=== PATIENT | female | born 1975 | race American Indian/Alaskan Native ===

== ENCOUNTER 2017-09-10 13:25 | Emergency (ER) | payer SELFPAY ==
[2017-09-10 14:22] VITALS: BP 131/82
== END 2017-09-10 15:15 | disposition left against medical advice (07) ==
LOC: ED 13:25
DX: M54.9 Dorsalgia, unspecified (principal); Z53.21 Procedure and treatment not carried out due to patient leaving prior to being seen by health care provider

== ENCOUNTER 2019-05-08 13:39 | Emergency (ER) | payer SELFPAY ==
[2019-05-08 13:54] VITALS: BP 117/73
== END 2019-05-08 14:30 | disposition left against medical advice (07) ==
LOC: ED 13:39
DX: R06.02 Shortness of breath (principal); Z53.21 Procedure and treatment not carried out due to patient leaving prior to being seen by health care provider